=== PATIENT | male | born 1930 | race Caucasian/White ===

== ENCOUNTER 2017-01-03 13:23 | Emergency (ER) | payer MEDICARE ==
[~2017-01-03 13:23] MED LIST: ASPIRIN81 MG PO; BENADRYL 25MG C25 MG PO; CALCIUM 600 +1 EAC3 PO; GLIMEPIRIDE1 MG PO; JANUVIA 100 MG100 MG PO; LIPITOR TAB 2020 MG PO; LOSARTAN POTASS50 MG PO; METOPROLOL TART25 MG PO; PLAVIX 75 MG TA75 MG PO; POLYETHYLENE GL17 GM PO; SPIRIVA18 MCG INH; VITAMIN D32000 UNIT PO
== END 2017-01-03 14:10 | disposition home or self-care (01) ==
LOC: ER1 13:23
DX: R21 Rash and other nonspecific skin eruption (principal); J44.9 Chronic obstructive pulmonary disease, unspecified; I10 Essential (primary) hypertension; E78.5 Hyperlipidemia, unspecified; E11.9 Type 2 diabetes mellitus without complications; Z85.46 Personal history of malignant neoplasm of prostate
CPT/HCPCS: 99282

== ENCOUNTER 2017-01-14 07:12 | Emergency (ER) | payer MEDICARE | END 2017-01-14 08:02 | disposition home or self-care (01) | LOC: ER1 07:12 | DX: R21 Rash and other nonspecific skin eruption (principal); I10 Essential (primary) hypertension | CPT/HCPCS: 99282 ==

== ENCOUNTER 2017-01-28 07:37 | Emergency (ER) | payer MEDICARE | END 2017-01-28 09:45 | disposition home or self-care (01) | LOC: ER1 07:37 | DX: R60.0 Localized edema (principal); E11.9 Type 2 diabetes mellitus without complications; E78.5 Hyperlipidemia, unspecified; I10 Essential (primary) hypertension; Z79.02 Long term (current) use of antithrombotics/antiplatelets; Z79.84 Long term (current) use of oral hypoglycemic drugs; Z79.899 Other long term (current) drug therapy | CPT/HCPCS: 99283 ==

== ENCOUNTER → 2017-01-31 | Outpatient (CLI) | payer MEDICARE ==
[2017-01-31 11:08] LABS: HEMOGLOBIN 12.8 gm/dl (14.0-17.5); RED BLOOD COUNT 3.94 M/UL (4.20-5.50); WHITE BLOOD COUNT 7.6 K/UL (4.5-11.0)
[2017-01-31 11:35] LABS: BUN/CREATININE RATIO 11 (0-10)
== END ==
LOC: LAB 10:15
PROVIDERS: Family Medicine
DX: Z12.5 Encounter for screening for malignant neoplasm of prostate (principal); E55.9 Vitamin D deficiency, unspecified; E78.5 Hyperlipidemia, unspecified; I10 Essential (primary) hypertension; E11.9 Type 2 diabetes mellitus without complications
CPT/HCPCS: 36415; 80053; 80061; 82043; 84439; 84443; 84681; 85027; G0103